=== PATIENT | female | born 1980 | race Caucasian/White ===

== ENCOUNTER → 2022-04-30 14:15 | Outpatient (REF) | payer BC, SELFPAY ==
[2022-04-30 16:01] VITALS: BMI 41.8
== END | disposition home or self-care (01) ==
LOC: UTC.OUT 14:15
PROVIDERS: Visit Provider Nurse Practitioner Family
DX: Z02.1 Encounter for pre-employment examination (principal); Z11.1 Encounter for screening for respiratory tuberculosis
CPT/HCPCS: 86580

== ENCOUNTER 2023-09-13 20:39 | Emergency (ER) | payer BC, SELFPAY ==
[2023-09-13 20:46] VITALS: BP 127/88; PULSE 88; RESP 14; TEMP 37.5; O2SAT 97; BMI 36.6
--- NOTE | 2023-09-13 20:49 | XR_ITS ---
PROCEDURE INFORMATION: Exam: XR Chest Exam date and time: 09/13/2023 8:53 PM Age: 42 years old Clinical indication: Cough and shortness of breath; Additional info: Cough, SOB TECHNIQUE: Imaging protocol: Radiologic exam of the chest. Views: 1 view. COMPARISON: No relevant prior studies available. FINDINGS: Lungs: Unremarkable. No consolidation. Pleural spaces: Unremarkable. No pleural effusion. No pneumothorax. Heart/Mediastinum: Unremarkable. No cardiomegaly. Bones/joints: Unremarkable. IMPRESSION: No acute findings.
--- NOTE | 2023-09-13 20:51 | HMH.EDGENADL ---
Discharge Plan Disposition Patient Disposition: Home, Self-Care Prescriptions Prescriptions: New nnqgvudtyszwoqh-axmtlqhyc-BC [Bromfed DM] 2-30-10 mg/5 mL syrup 5 ml PO Q6H PRN (Reason: cold symptoms) Qty: 118 0RF Referrals Follow up/Referrals: Provider,Referral, MD [Primary Care Provider] - See instructions Activity Restrictions/Add. Instructions Additional Instructions/Restrictions: At this time it was felt you are safe to be discharged home. If new or worsening symptoms please do not hesitate to return the emergency department. If symptoms persist please follow-up with your family doctor as you are able. Clinical Impressions Clinical Impression: Acute viral syndrome Discharge ED Provider: Ciro Trevizo General Adult HPI General Chief complaint: Upper Respiratory Infection Stated complaint: SOA,cough,headache,body aches Time Seen by Provider: 09/13/23 20:44 Mode of Arrival: Family Vehicle Source of Information: Patient Limitations: No Limitations Description of Symptoms (Recalled from ER Triage Doc. by RN): cough,congestion,chills, headache since last night. 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 No other acute complaints at this time. Related Data Previous Rx's Medication Instructions Recorded ciomtiaojuvhfny-ywsisvyeizxgrxg-NL 5 ml PO Q6H PRN cold symptoms #118 09/13/23 2 mg-30 mg-10 mg/5 mL oral syrup mL (Bromfed DM) Allergies Allergy/AdvReac Type Severity Reaction Status Date / Time No Known Allergies Allergy Verified 04/30/22 16:01 [facility] Disclaimer: The information contained in this section may have been updated after the patient was seen, as this information can be updated by other users. Social History Smoking Status: Never smoker alcohol intake: never current occupational status: unemployed Travel in the last 8 weeks: None ROS Obtained: Yes Systems reviewed as appropriate & no additional complaints except as documented Physical Exam General General appearance: alert and in no apparent distress Head Head exam: atraumatic and normocephalic Eye Eye exam: Present PERRL and EOMI ENT ENT exam: Present mucous membranes moist Neck Neck exam: Present normal inspection Chest Chest inspection: Present normal inspection and symmetric chest wall rise Respiratory Respiratory exam: Present normal lung sounds bilaterally; Absent respiratory distress Cardiovascular Cardiovascular exam: Present regular rate and normal rhythm Abdominal Exam Abdominal exam: Present soft Extremities Exam Extremities exam: Present normal inspection Neurological Exam Neurological exam: Present alert Psychiatric Psychiatric exam: Present normal affect Skin Skin exam: Present warm and dry Medical Decision Making Elias Inquiry Pt receiving controlled substance: No Vital Signs: 09/13/23 20:46 Temperature 99.5 F Temperature Source Oral Pulse Rate [Right Brachial] 88 Respiratory Rate 14 Blood Pressure [Right Arm] 127/88 Blood Pressure Mean [Right Arm] 101 Blood Pressure Source [Right Arm] Automatic Cuff Blood Pressure Position [Right Arm] Sitting 02 Sat by Pulse Oximetry 97 Oxygen Delivery Method Room Air Orders (Tests/Meds): ED MEDICATIONS Discontinued Medications Generic Name Dose Route Start Last Admin Trade Name Freq PRN Reason Stop Dose Admin Acetaminophen 1,000 mg 09/13/23 20:49 09/13/23 20:55 Acetaminophen 500mg Tab PO 09/13/23 20:50 1,000 mg ONCE ONE Administration Ibuprofen 600 mg 09/13/23 20:49 09/13/23 20:56 Ibuprofen 600 Mg Tablet PO 09/13/23 20:50 600 mg ONCE ONE Administration ORDERS Category Date Time Status CXR --portable [XR chest portable] Stat Exams 09/13/23 20:49 Completed Rapid PCR Covid and Flu A/B Stat Lab 09/13/23 21:05 Received Medical Decision Narrative: In summary patient is a 42-year-old female past medical history described above who presents emergency department for evaluation of cough, shortness of breath, headache. Patient is hemodynamically stable nontoxic-appearing upon arrival, afebrile. History and physical consistent with viral syndrome, differential includes influenza, COVID, among others. Patient has a nonfocal neurologic exam therefore workup with intracranial imaging was considered but will be deferred. Limited workup will be conducted with viral swab and chest x-ray screening for pneumonia. Initial inventions include Tylenol, ibuprofen. Chest x-ray informally interpreted by me, no acute lobar opacities or large pneumothorax. Formal read shows no acute pathology. On repeat evaluation patient continued to be hemodynamically stable and is appropriate for outpatient management at this time. Critical Care Critical Care Time Critical Care Time: No
[2023-09-13] MEDS: ACETAMINOPHEN 500MG TAB 1000 MG PO (20:55)
[2023-09-13] MEDS: IBUPROFEN 600 MG TABLET PO (20:56)
[2023-09-13 21:15] LABS: Coronavirus 19, PCR Not Detected (NotDetected); Influenza B, PCR Not Detected (NotDetected)
[2023-09-13 21:29] VITALS: BP 125/70; PULSE 72; RESP 19; TEMP 36.7; O2SAT 98
[2023-09-13 21:41] LABS: Influenza A, PCR Detected (NotDetected)
== END 2023-09-13 21:42 | disposition home or self-care (01) ==
PROVIDERS: Emergency Provider Emergency Medicine
DX: R05.9 Cough, unspecified (principal); R09.81 Nasal congestion; R51.9 Headache, unspecified; R68.83 Chills (without fever); B34.9 Viral infection, unspecified
CPT/HCPCS: 71045; 87636; 99283

== ENCOUNTER 2024-11-07 15:19 | Outpatient (CLI) | payer BC, SELFPAY ==
--- NOTE | 2024-11-07 15:22 | MM_ITS ---
PROCEDURE INFORMATION: Exam: MG Bilateral Screening 3D Mammography Exam date and time: 11/07/2024 3:25 PM Age: 44 years old Clinical indication: Screening mammogram TECHNIQUE: Imaging protocol: Bilateral Screening tomosynthesis and 2D mammography including computer-aided detection (CAD) when performed. COMPARISON: No relevant prior studies available. FINDINGS: MAMMOGRAPHY: Breast composition: There are scattered areas of fibroglandular density. Mass: None. Architectural distortion: No new or suspicious architectural distortion. Calcifications: No new or suspicious calcifications are present Asymmetric density: No new or suspicious asymmetric density is present Skin thickening: None. Axillary adenopathy: None. IMPRESSION: No mammographic evidence of malignancy. Recommend annual screening mammography unless otherwise clinically indicated. ASSESSMENT: BI-RADS category 1: Negative.
== END 2024-11-07 23:59 | disposition home or self-care (01) ==
LOC: RAD 15:19
PROVIDERS: PCP Nurse Practitioner Family; Visit Provider Nurse Practitioner Family
DX: Z12.31 Encounter for screening mammogram for malignant neoplasm of breast (principal)
CPT/HCPCS: 77063; 77067